=== PATIENT | female | born 1975 | race African-American/Black ===

== ENCOUNTER 2020-04-12 18:47 | Emergency (ER) | payer OTHER, SELFPAY ==
--- NOTE | ~2020-04-12 | XR_ITS ---
EXAMINATION: XR chest 1V portable 04/12/2020 20:27 INDICATION: Midsternal chest pain PROCEDURE: AP view of the chest COMPARISON: No prior studies for comparison. FINDINGS: The lungs are clear. There is scoliosis. The cardiomediastinal silhouette is within normal limits. There are no pleural effusions. There is no pneumothorax suspected. IMPRESSION: 1: NO ACUTE CARDIOPULMONARY DISEASE. Reviewed, dictated and finalized at location A.
--- NOTE | ~2020-04-12 | CT_ITS ---
EXAMINATION: CTA brain carotid EXAM DATE: 04/12/2020 22:22 INDICATION: Facial droop, syncope. TECHNIQUE: Spiral CTA of the carotid arteries was performed with intravenous injection 100 cc of Om nipaque 350. Axial, coronal, sagittal reformatted images reviewed. Additional reformatted images cre ated on dedicated 3-D workstation. NASCET comparable standard used to assess the degree of arterial stenosis. Spiral CT angiogram cerebral arteries performed with the same intravenous injection of con trast. Source images of the brain CTA transferred to dedicated workstation for 3-D rotational image c reation. Coronal, sagittal maximum intensity pixel images also reviewed. The dose-length product (D LP) for this examination was 1028.83 mGy-cm. The exposure was tailored according to patient size, a nd iterative reconstruction (ASIR) was used as additional dose reduction technique. Correlation is ma de to noncontrast CT from earlier same date. FINDINGS: There is no carotid plaque or stenosis. There is no carotid or vertebral basilar arterial dissection or fibromuscular dysplasia. There are no cerebral artery aneurysms. There is symmetric cer ebral artery arborization. The sagittal, transverse and sigmoid sinuses enhance normally, no venous s inus thrombosis. Internal cerebral veins also enhance normally. IMPRESSION: Normal CTA carotid exam. Reviewed, dictated and finalized at location A. IMPRESSION: Normal CTA carotid exam.
--- NOTE | ~2020-04-12 | CT_ITS ---
EXAMINATION: CT BRAIN W/O DATE: 04/12/2020 20:22 INDICATION: Patient had seizure with loss of consciousness. Numbness in left arm and leg. TECHNIQUE: Computed tomography (CT) of the head was performed without intravenous contrast. The dose- length product was 605.33 mGy-cm. COMPARISON: No prior studies for comparison. FINDINGS: Normal brain parenchymal volume for age. Normal vaca-white differentiation. No acute intrac ranial hemorrhage, infarction, mass or mass effect. No ventriculomegaly or midline shift. Midline sagittal images demonstrate a normal corpus callosum, c raniovertebral junction and sella turcica. Basilar cisterns are patent. Paranasal sinuses and mastoids are pneumatized. No depressed skull fractures. IMPRESSION: 1. No acute intracranial abnormality. Reviewed, dictated and finalized at location A.
[2020-04-12 19:00] VITALS: BP 128/81; PULSE 70; RESP 17; TEMP 36.7; O2SAT 100
--- NOTE | 2020-04-12 19:06 | ECG_ITS ---
Measurements Intervals [place] Rate: 73 P: 148 SC: 159 QRS: -27 QRSD: 85 T: -12 QT: 375 QTc: 415 Interpretive Statements SINUS RHYTHM POSSIBLE LEFT ATRIAL ENLARGEMENT LOW QRS VOLTAGE IN PRECORDIAL LEADS MINIMAL Q WAVES- HIGH LATERAL LEADS NONSPECIFIC T-WAVE ABNORMALITY- ANTEROLAT/INF LEADS BASELINE ARTIFACT- III BORDERLINE ECG Electronically Signed On 04-13-2020 7:17:20 CDT by Kermit Caldera D.O.
[2020-04-12 19:17] LABS: Basophils Percent Auto 0.2 % (0.2-1.2); Hematocrit 33.1 % (37.0-47.0); Hemoglobin 11.4 g/dL (12.0-15.0); Immature Granulocyte Absolute 0.03 K/mm3 (0.00-0.031); Immature Granulocyte Percent A 0.3 % (0-0.5); Lymphocytes Absolute Auto 1.25 K/mm3 (0.9-3.2); Lymphocytes Percent Auto 13.8 % (18.3-44.2); Mean Corpuscular HGB Conc 34.4 g/dl (32-36); Mean Corpuscular Hemoglobin 26.7 pg (26-34); Mean Corpuscular Volume 77.5 fl (80-100); Mean Platelet Volume 10.6 fl (7.4-10.4); Monocytes Absolute Auto 0.3 K/mm3 (0.1-0.6); Monocytes Percent Auto 2.8 % (2.6-8.5); Neutrophils Absolute Auto 7.5 K/mm3 (1.3-6.7); Neutrophils Percent Auto 82.9 % (45.5-73.1); Platelet Count Result 338 k/mm3 (150-375); Red Blood Count 4.27 M/mm3 (4.2-5.4); Red Cell Distribution Width 15.9 % (11.5-14.5); White Blood Count 9.1 K/mm3 (4.5-10.0)
[2020-04-12 19:28] LABS: Anion Gap 13.8 mmol/L (7-16); Blood Urea Nitrogen 10 mg/dL (7-17); Calcium 9.4 mg/dL (8.4-10.2); Carbon Dioxide 26 mmol/L (22-30); Chloride 102 mmol/L (98-107); Estimated CRCL calculation 64 ml/min; Estimated Glomerular Filt Rate > 60; Glucose 129 mg/dL (65-105); Potassium 3.8 mmol/L (3.4-5.0); Sodium 138 mmol/L (137-145)
--- NOTE | 2020-04-12 20:07 | ED.GENADULT ---
HPI - General Adult General Chief complaint: Environmental Exposure Stated complaint: ?poss heat stroke? Time Seen by Provider: 04/12/20 19:36 Source: patient Mode of arrival: ambulatory Limitations: no limitations History of Present Illness HPI narrative: This patient is a 44 year old female who presents for evaluation of syncope vs seizure. Patient states she was sitting outside at [employer] when she developed chest pain. Her daughter states patient complained of chest pain and then she slumped over on her son. She then witnessed her mother have 1 minute general tonic clonic seizure. Afterwards, her mother woke up and it took about 3 minutes for her to start talking. She states she was confused initially. Patient continues to have chest pain but she is unable to describe. She denies any other symptoms. She denies history of seizures or syncope. Related Data Home Medications Medication Instructions Recorded Confirmed escitalopram oxalate [Lexapro] 20 mg PO DAILY 04/12/20 04/12/20 Allergies Allergy/AdvReac Type Severity Reaction Status Date / Time butorphanol Allergy Unknown Other Verified 04/12/20 19:04 trazodone AdvReac Severe Swelling Verified 04/12/20 19:04 Review of Systems Review of Systems: All systems reviewed & are unremarkable except as noted in HPI and below Constitutional: Constitutional: Denies chills and Denies fever(s) Cardiovascular: Cardiovascular: Reports chest pain, Denies rapid heart rate, Denies radiating jaw, neck or arm pain and Denies slow heart rate Respiratory: Respiratory: Denies cough, Denies dyspnea and Denies wheezing Gastrointestinal: Gastrointestinal: Denies abdominal pain, Denies nausea and Denies vomiting Genitourinary: Genitourinary: Denies hematuria Neurologic: Reports syncope Comments: seizure PMFSH Past Medical History Medical History (Updated 04/12/20 @ 23:47 by Keya Pate MD) Patient denies medical problems Surgical History Surgical History (Updated 04/12/20 @ 20:11 by Keya Pate MD) H/O unilateral salpingectomy Social History Social History (Updated 04/12/20 @ 20:11 by Keya Pate MD) Smoking status: Never smoker Alcohol intake: never Substance use: never Gender identity (if verbalized by the patient): Female Exam Narrative: Exam Narrative: GENERAL: Well-appearing, well-nourished, and in no acute distress. HEAD: Normocephalic, atraumatic EYES: PERRLA and EOMI, conjunctiva clear without discharge EARS: TM's clear bilaterally without erythema or dullness NOSE: Nares clear, no rhinorrhea or epistaxis THROAT:Mucous membranes moist, Oropharynx normal without erythema, exudate, peritonsillar swelling or fluctuance NECK: Supple, without lymphadenopathy or mass RESPIRATORY: No respiratory distress, Airway patent, Respirations non-labored, Clear to auscultation without rales, rhonchi or wheeze HEART: Regular rate and rhythm. No murmur heard. Normal peripheral pulses. ABDOMEN: Soft, nontender, nondistended, normal active bowel sounds. No masses. No rebound or guarding, No organomegaly. EXTREMITIES: No edema, normal strength with full range of motion. SKIN: Warm, dry, normal color without rash NEURO: Alert and oriented x3. CN 2-12 grossly intact. No focal deficits. PSYCH: Normal mood and affect. Course Reevaluation(s) Reevaluation #1: I discussed with patient labs and imaging are unremarkable. No focal deficits found . It is unclear if patient's symptoms were from heat. I discussed seizure precautions . She will follow up with [facility] regarding today's visit. Date: 04/12/20 Time: 23:44 Vital Signs Vital signs: Vital Signs Temperature 98.1 F 04/12/20 19:00 Pulse Rate 70 04/12/20 19:00 Respiratory Rate 17 04/12/20 19:00 Blood Pressure 128/81 04/12/20 19:00 Pulse Oximetry 100 04/12/20 19:00 Temperature 98.2 F 04/13/20 00:18 Pulse Rate 62 04/13/20 00:18 Respiratory Rate 16 04/13/20 00
[2020-04-12 20:23] LABS: Alanine Aminotransferase 9 U/L (4-35); Albumin Level 4.5 g/dL (3.5-5.1); Alkaline Phosphatase 90 U/L (38-126); Aspartate Amino Transferase 18 U/L (14-36); Bilirubin,Total 0.5 mg/dL (0.2-1.3); Creatine Kinase 95 U/L (30-135); Magnesium 2.2 mg/dL (1.6-2.3)
[2020-04-12 20:24] LABS: Prothrombin Time 13.1 Seconds (11.1-14.7)
[2020-04-12 20:25] LABS: Partial Thromboplastin Time 27.8 SECONDS (22.3-36.8)
[2020-04-12 20:27] LABS: D Dimer 0.42 ug/mL (<0.48)
[2020-04-12 20:35] LABS: Troponin I < 0.012 ng/mL (0.000-0.034)
--- NOTE | 2020-04-12 20:36 | PC.NURSE ---
pt refused IV or NS aware, no new orders.
[2020-04-12 20:46] VITALS: BP 131/72; PULSE 62; RESP 16; O2SAT 100
[2020-04-12 20:49] LABS: Add Urine Microscopic? YES; Appearance Urine Clear (Clear); Bilirubin Urine Negative (Negative); Blood Urine Negative (Negative); Color Urine Yellow (Yellow); Glucose Urine UA Negative (Negative); Ketones Urine Negative (Negative); Leukocyte Esterase Ur Negative LEU/UL (Negative); Mucus Urine Moderate /lpf; Nitrate Urine Negative (Negative); Protein Urine 1+ mg/dL (Negative); RBC Urine 0-2 /hpf (0-2); Specific Grav Ur 1.025 (1.001-1.035); Squamous Epithelial Cell Urine Rare /hpf (Few); WBC Urine 0-3 /hpf
[2020-04-12 20:50] VITALS: BP 112/82; BP 129/82; PULSE 65; PULSE 66; RESP 16
[2020-04-12 21:05] LABS: Amphetamine Screen Urine Negative (Negative); Barbiturate Screen Urine Negative (Negative); Benzodiazepines Screen Urine Negative (Negative); Cannabinoid Screen Urine Negative (Negative); Cocaine Screen Urine Negative (Negative); Methadone Screen Urine Negative (Negative); Opiate Screen Urine Negative (Negative); Phencyclidine Screen Urine Negative (Negative)
[2020-04-12 21:10] VITALS: BP 127/72
[2020-04-12] MEDS: SODIUM CHLORIDE 0.9% IV 1,000 ML 999 ML IV CONT (22:29)
[2020-04-12 23:01] VITALS: BP 122/76; PULSE 61; RESP 16; O2SAT 100
[2020-04-12 23:16] LABS: Troponin I < 0.012 ng/mL (0.000-0.034)
[2020-04-13 00:18] VITALS: BP 124/79; PULSE 62; RESP 16; TEMP 36.8; O2SAT 99
== END 2020-04-13 00:19 | disposition home or self-care (01) ==
PROVIDERS: Emergency Medicine; Emergency Provider General Practice
DX: R55 Syncope and collapse (principal)
CPT/HCPCS: 36415; 70450; 70496; 70498; 71045; 80048; 80076; 80307; 81001; 81025; 82550; 83735; 84484; 85025; 85380; 85610; 85730; 93005; 96360; 99284; J7030; Q9967

== ENCOUNTER 2021-01-17 14:35 | Emergency (ER) | payer OTHER, SELFPAY ==
--- NOTE | 2021-01-17 14:46 | ED.URI ---
HPI - URI/Sore Throat General Chief Complaint: Upper Respiratory Infection Stated Complaint: sore throat Time Seen by Provider: 01/17/21 14:46 Source: patient and RN notes reviewed Mode of arrival: ambulatory Limitations: no limitations History of Present Illness HPI Narrative: 25-year-old female presents to the [facility] with complaints of sore throat. 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 Has 2 children at home that were sick. He is fully vaccinated against Covid and has no concern. No treatment prior to arrival. Symptoms started yesterday. Denies fevers. Denies chest pain or shortness of breath. No abdominal pain, nausea, vomiting or diarrhea. Related Data Home Medications Medication Instructions Recorded Confirmed escitalopram oxalate [Lexapro] 20 mg PO DAILY 01/17/21 01/17/21 topiramate [Topamax] 25 mg PO DAILY 01/17/21 01/17/21 Allergies Allergy/AdvReac Type Severity Reaction Status Date / Time butorphanol Allergy Unknown Other Verified 01/17/21 15:02 trazodone AdvReac Severe Swelling Verified 01/17/21 15:02 Review of Systems Review of Systems: Narrative: CONSTITUTIONAL: Denies fever, chills, or sweats. EYES: Denies visual changes, redness, or discharge. ENT: Denies rhinorrhea, congestion or otalgia. Reports sore throat CARDIOVASCULAR: Denies chest pain, palpitations, or edema. RESPIRATORY: Denies cough or dyspnea. GASTROINTESTINAL: Denies abdominal pain, nausea, vomiting, or diarrhea. MUSCULOSKELETAL: Denies back pain, joint pain, or myalgia. NEUROLOGIC: Denies headache, numbness, or weakness. PSYCHIATRIC: Denies anxiety or depression. All other systems reviewed are negative, except as documented in HPI. [facility] Past Medical History Medical History Patient denies medical problems Surgical History Surgical History H/O unilateral salpingectomy Social History Social History Smoking status: Never smoker Alcohol intake: never Substance use: never Gender identity (if verbalized by the patient): Female Comments At the time of my signature, I reviewed and agree with the nursing past medical, surgical, social, and family history. There is no relevant family history pertinent to the patient complaint. Exam Narrative: Exam Narrative: GENERAL: This is a well-nourished, well-developed patient, in no apparent distress. HEAD: normocephalic, atraumatic. EYES: PERRL. Sclera clear/white. Vision is grossly intact. EARS: External ears normal, auditory canals clear and without drainage, TMs normal without perforation. Hearing grossly intact. NOSE: External nose normal. Nares without redness, clear rhinorrhea. THROAT: Mucous membranes moist, posterior pharynx clear. NECK: Neck supple, non-tender without lymphadenopathy, masses or thyromegaly. CARDIOVASCULAR: Regular rate and rhythm without murmurs, gallops, or rubs. RESPIRATORY: Clear to auscultation. Breath sounds equal bilaterally. No wheezes, rales, or rhonchi. GASTROINTESTINAL: Abdomen soft, non-tender, nondistended. SKIN: warm, Dry, intact with no suspicious lesions or rash, good texture and turgor. NEURO: awake, alert, and oriented to person, place and time. EXTREMITIES: No joint tenderness, effusion, or edema noted. BACK: Nontender without deformity. Course Vital Signs Vital signs: Vital Signs Temperature 97.5 F L 01/17/21 14:49 Pulse Rate 67 01/17/21 14:49 Respiratory Rate 16 01/17/21 14:49 Blood Pressure 125/62 01/17/21 14:49 Pulse Oximetry 99 01/17/21 14:49 Temperature 97.5 F L 01/17/21 14:49 Pulse Rate 67 01/17/21 14:49 Respiratory Rate 16 01/17/21 14:49 Blood Pressure 125/62 01/17/21 14:49 Pulse Oximetry 99 01/17/21 14:49 Reviewed MDM - URI/Sore Throat MDM Narrative Medical decision making narrative: Discharge instructions reviewed with patient,
[2021-01-17 14:49] VITALS: BP 125/62; PULSE 67; RESP 16; TEMP 36.4; O2SAT 99
== END 2021-01-17 15:15 | disposition home or self-care (01) ==
PROVIDERS: Emergency Provider Nurse Practitioner
DX: J02.8 Acute pharyngitis due to other specified organisms (principal); Z86.13 Personal history of malaria; Z96.1 Presence of intraocular lens
CPT/HCPCS: 87081; 87880; 99213; G0463

== ENCOUNTER 2021-05-02 20:06 | Emergency (ER) | payer OTHER, SELFPAY ==
--- NOTE | ~2021-05-02 | XR_ITS ---
XR chest 2V DATE: 05/02/2021 20:38 INDICATION: Dizziness and nausea for one month. History of stroke. TECHNIQUE: PA and lateral views COMPARISON: 04/12/2020 portable AP chest FINDINGS: Spina bifida occulta at T3 and T4. There is prominent reverse S-shaped thoracolumbar scoliosis. Normal heart size. No hilar or mediastinal enlargement. No pulmonary infiltrate or consolidation, ple ural effusion or pulmonary vascular congestion or pneumothorax. IMPRESSION: No active cardiopulmonary disease Reviewed, dictated and finalized at location A.
--- NOTE | ~2021-05-02 | CT_ITS ---
EXAMINATION: CT brain wo con DATE: 05/02/2021 23:45 INDICATION: Headache, dizziness, nausea. Cerebrovascular accident one year ago. TECHNIQUE: Computed tomography (CT) of the head was performed without intravenous contrast. The mA wa s adjusted according to patient size. Iterative reconstruction technique was employed. Exam dose: 60 5.33 mGy-cm total exam DLP. COMPARISON: 04/12/2020 CT brain and CTA brain/carotid FINDINGS: No intracranial mass lesion or hemorrhage or cerebrovascular accident is evident. No midlin e shift or mass effect. Normal ventricular size. No subdural or epidural hematoma. No fracture or bone destruction of the cranial vault. The mastoid air cells and included paranasal si nuses are normally developed and aerated. IMPRESSION: No significant abnormality Reviewed, dictated and finalized at Location A. Reviewed, dictated and finalized at location A. IMPRESSION: No significant abnormality
[2021-05-02 20:16] VITALS: BP 134/92; PULSE 59; RESP 18; TEMP 36.1; O2SAT 100
--- NOTE | 2021-05-02 20:19 | ECG_ITS ---
Measurements Intervals [place] Rate: 54 P: 28 MI: 180 QRS: -11 QRSD: 80 T: 6 QT: 415 QTc: 396 Interpretive Statements SINUS BRADYCARDIA WITH SINUS ARRHYTHMIA INCOMPLETE RIGHT BUNDLE BRANCH BLOCK LOW QRS VOLTAGE IN PRECORDIAL LEADS BORDERLINE T WAVE ABNORMALITY- INFERIOR LEADS BORDERLINE ECG Electronically Signed On 05-03-2021 9:05:21 CDT by Kermit Caldera D.O.
[2021-05-02 20:40] LABS: Basophils Percent Auto 0.2 % (0.2-1.2); Eosinophils Absolute Auto 0.1 K/mm3 (0-0.3); Eosinophils Percent Auto 0.9 % (0-4.4); Hematocrit 33.9 % (37.0-47.0); Hemoglobin 11.1 g/dL (12.0-15.0); Immature Granulocyte Absolute 0.01 K/mm3 (0.00-0.031); Immature Granulocyte Percent A 0.2 % (0-0.5); Lymphocytes Absolute Auto 2.22 K/mm3 (0.9-3.2); Mean Corpuscular HGB Conc 32.7 g/dl (32-36); Mean Corpuscular Hemoglobin 26.2 pg (26-34); Mean Platelet Volume 9.6 fl (7.4-10.4); Monocytes Absolute Auto 0.5 K/mm3 (0.1-0.6); Neutrophils Absolute Auto 2.5 K/mm3 (1.3-6.7); Neutrophils Percent Auto 46.7 % (45.5-73.1); Platelet Count Result 301 k/mm3 (150-375); Red Blood Count 4.24 M/mm3 (4.2-5.4); White Blood Count 5.3 K/mm3 (4.5-10.0)
[2021-05-02 20:49] LABS: Alanine Aminotransferase 15 U/L (4-35); Albumin Level 4.8 g/dL (3.5-5.1); Alkaline Phosphatase 92 U/L (38-126); Anion Gap 8 mmol/L (8-16); Aspartate Amino Transferase 27 U/L (14-36); Bilirubin,Total 0.2 mg/dL (0.2-1.3); Blood Urea Nitrogen 11 mg/dL (7-17); Calcium 9.6 mg/dL (8.4-10.2); Carbon Dioxide 28 mmol/L (22-30); Chloride 102 mmol/L (98-107); Estimated CRCL calculation 62 ml/min; Estimated Glomerular Filt Rate > 60; Glucose 89 mg/dL (65-110); Potassium 3.7 mmol/L (3.4-5.0); Sodium 138 mmol/L (137-145)
[2021-05-02 23:09] LABS: Add Urine Microscopic? YES; Appearance Urine Clear (Clear); Bilirubin Urine Negative (Negative); Blood Urine Negative (Negative); Color Urine Yellow (Yellow); Glucose Urine UA Negative (Negative); Ketones Urine Negative (Negative); Leukocyte Esterase Ur Negative LEU/UL (Negative); Mucus Urine Moderate /lpf; Nitrate Urine Negative (Negative); Protein Urine Negative (Negative); RBC Urine 0-2 /hpf (0-2); Specific Grav Ur 1.029 (1.001-1.035); Squamous Epithelial Cell Urine Rare /hpf (Few); Urobilinogen Urine Negative mg/dL (<2.0); WBC Urine 0-3 /hpf
--- NOTE | 2021-05-02 23:41 | PC.NURSE ---
Pt to CT via wheelchair at this time .
[2021-05-02 23:54] VITALS: BP 126/83; PULSE 57; RESP 16; O2SAT 100
--- NOTE | 2021-05-03 00:02 | PC.NURSE ---
Pt states she feels like her head, eyes, and brain are out of sync . Denies sense of movement, or a room spinning sensation. Denies lightheadedness.
--- NOTE | 2021-05-03 00:26 | ED.DIZZY ---
HPI - Dizziness General Chief Complaint: Dizziness Stated Complaint: dizziness, and nausea for one month Time Seen by Provider: 05/02/21 23:20 Source: patient Mode of arrival: ambulatory Limitations: no limitations History of Present Illness HPI Narrative: 45-year-old with remote history of CVA here with complaints of on and off dizziness for last several months. Patient states that while she was getting out of her work she felt extremely dizzy. Patient states that her head was twisting. She denied any headache, nausea or vomiting. She also states that she has occasional migraine headaches. MD elicited complaint: dizziness Pertinent past history: stroke Onset (ago): week(s) Timing: intermittent Severity: moderate Description: sense of movement Exacerbating factors: nothing Relieving factors: nothing Associated symptoms: denies other symptoms Related Data Home Medications Medication Instructions Recorded Confirmed escitalopram oxalate [Lexapro] 20 mg PO DAILY 01/17/21 01/17/21 topiramate [Topamax] 25 mg PO DAILY 01/17/21 01/17/21 Allergies Allergy/AdvReac Type Severity Reaction Status Date / Time butorphanol Allergy Unknown Other Verified 01/17/21 15:02 trazodone AdvReac Severe Swelling Verified 01/17/21 15:02 Review of Systems Review of Systems: All systems reviewed & are unremarkable except as noted in HPI and below Constitutional: Constitutional: Reports no additional constitutional complaints Eyes: Eyes: Reports no additional eye complaints ENT: Reports system reviewed and no additional complaints, except as documented Cardiovascular: Cardiovascular: Reports no additional cardiovascular complaints Respiratory: Respiratory: Reports no additional respiratory complaints Gastrointestinal: Gastrointestinal: Reports no additional gastrointestinal complaints Musculoskeletal: Musculoskeletal: Reports no additional musculoskeletal complaints Neurologic: Reports as per HPI PMFSH Past Medical History Medical History Patient denies medical problems Surgical History Surgical History H/O unilateral salpingectomy Social History Social History Smoking status: Never smoker Alcohol intake: never Substance use: never Gender identity (if verbalized by the patient): Female Exam Narrative: GENERAL: Well-appearing, well-nourished, and in no acute distress. HEAD: Normocephalic, atraumatic. EYES: PERRLA and EOMI NECK: Supple. CHEST: Clear to auscultation. No respiratory distress. HEART: Regular rate and rhythm. No murmur heard. Normal peripheral pulses. ABDOMEN: Soft, nontender, nondistended, normal active bowel sounds. EXTREMITIES: Normal range of motion. No edema. SKIN: Warm, dry, no rash. NEURO: No focal deficits. Alert and oriented x3. PSYCH: Normal mood and affect. Course Course Emergency Course: Patient presently has no symptoms. She is worried about having a stroke. Informed her about her lab work will do a CT scan to make sure she has no underlying mass or stroke. Patient was informed about her lab work and CT findings. Advised her to continue home medication, follow-up with her primary doctor and urologist. Vital Signs Vital signs: Vital Signs Temperature 36.1 C L 05/02/21 20:16 Pulse Rate 59 L 05/02/21 20:16 Respiratory Rate 18 05/02/21 20:16 Blood Pressure 134/92 H 05/02/21 20:16 Pulse Oximetry 100 05/02/21 20:16 Temperature 36.1 C L 05/02/21 20:16 Pulse Rate 57 L 05/02/21 23:54 Respiratory Rate 16 05/02/21 23:54 Blood Pressure 126/83 05/02/21 23:54 Pulse Oximetry 100 05/02/21 23:54 MDM - Dizziness Differential Diagnosis Differential diagnosis: Likely benign paroxysmal positional vertigo, orthostatic hypotension, cerebrovascular accident and acute vestibular neuronitis Lab Data Result diagr
[2021-05-03 00:52] VITALS: BP 117/79; PULSE 64; RESP 16; O2SAT 100
== END 2021-05-03 00:54 | disposition home or self-care (01) ==
PROVIDERS: Emergency Provider Family Medicine
DX: R42 Dizziness and giddiness (principal); R00.1 Bradycardia, unspecified; I45.10 Unspecified right bundle-branch block; R94.31 Abnormal electrocardiogram [ECG] [EKG]
CPT/HCPCS: 36415; 70450; 71046; 80053; 81001; 85025; 93005; 99284